=== PATIENT | female | born 1955 | race Caucasian/White ===

== ENCOUNTER 2022-04-12 12:40 | Outpatient (CLI) | payer MEDICARE, OTHER | END 2022-04-12 12:41 | disposition home or self-care (01) | LOC: NAV RAD 12:40 | PROVIDERS: ATTEND Nurse Practitioner | DX: I50.22 Chronic systolic (congestive) heart failure (principal); I42.8 Other cardiomyopathies; I44.2 Atrioventricular block, complete | CPT/HCPCS: 71046 ==